=== PATIENT | male | born 1945 | race Caucasian/White ===

== ENCOUNTER 2018-02-25 20:32 | Inpatient (IN) | payer MEDICARE, BC ==
[~2018-02-25] VITALS: Ht 175.3 cm; Wt 86.0 kg
[2018-02-25] MEDS ORDERED: PREDNISONE5 MG PO (20:47)
[2018-02-25] MEDS ORDERED: BACTRIM DS1 TAB PO (20:47)
[2018-02-25] MEDS ORDERED: BAYER CHEWABLE81 MG PO (20:48)
--- NOTE | 2018-02-25 20:52 | NUR ---
PATIENT TAKING AUSTEDO 9MG BID NOT ON LIST.
--- NOTE | 2018-02-25 21:08 | NUR ---
PATIENT WITH A FEVER AND NOTICED A RED RASH TO ABD AND CHEST WHEN PLACED IN ROOM. DR GUALLPA ADVISED.
--- NOTE | 2018-02-25 21:19 | NUR ---
REDNESS NOTED TO FACE/CHEST/BACK. DENIES ANY INTCHING. BS CLEAR. NO STIDOR. PT ALERT AND ORIETNED. SET UP MECHANIC HEADING MACHINES AT BEDSIDE
[2018-02-25 22:11] LABS: BASOPHILS 0 % (0-2); EOSINOPHILS 0.1 % (0-7); HEMATOCRIT 46.1 % (42.0-54.0); HEMOGLOBIN 15.8 g/dL (13.5-17.5); IMMATURE GRANULOCYTES 0.6 % (0-5); LYMPHOCYTES 2.6 % (15-50); MCH 30.6 pg (26.0-34.0); MCHC 34.3 g/dL (31.0-37.0); MCV 89.3 fL (80.0-100.0); MEAN PLATELET VOLUME 12.1 fL (7.4-10.4); MONOCYTES 4.7 % (2-11); PLATELET COUNT 159 10x3/uL (130-400); RBC 5.16 10x6/uL (4.20-6.10); RDW 14.2 % (11.5-14.5); WBC 16.1 10x3/uL (4.8-10.8)
--- NOTE | 2018-02-25 22:26 | NUR ---
PREDATORY HUNTER AT BEDSIDE AT THIS TIME
[2018-02-25 22:27] LABS: ALBUMIN 3.3 g/dL (3.4-5.0); ANION GAP 16.8 mmol/L (8-16); BILIRUBIN - TOTAL 0.55 mg/dL (0.2-1.3); CALCIUM 8.5 mg/dL (8.5-10.1); CARBON DIOXIDE 24.5 mmol/L (21.0-32.0); CREATININE - SERUM 1.7 mg/dL (0.6-1.3); POTASSIUM - SERUM 4.3 mmol/L (3.5-5.1); PROTEIN - SERUM 7.2 g/dL (6.4-8.2)
[2018-02-25] MEDS ORDERED: CLEOCIN HCL300 MG PO (22:44)
[2018-02-25] MEDS ORDERED: NORCO 7.5/325 T1 TA1 PO (22:44)
[2018-02-25 23:26] VITALS: BP 119/58
[2018-02-26] VITALS (9 sets, daily range): BP systolic 92–123; BP diastolic 54–66; Ht 175.3 cm; Wt 86.0 kg
--- NOTE | 2018-02-26 01:10 | NUR ---
REPORT CALLED AT THIS TIME. PT AND FAMILY ADVISED ON ADMIT
--- NOTE | 2018-02-26 01:15 | NUR ---
IV ABX AND IV FLUIDS STOPPED AT THIS TIME
[2018-02-26] MEDS ORDERED: AUSTEDO PO (01:28)
--- NOTE | 2018-02-26 02:02 | NUR ---
PT TO FLOOR VIA WHEELCHAIR. AND DAUGHTER AT BEDSIDE. ALERT AND ORIENTED X 4. UP AB JERI. DRSG TO L SIDE. TREMORS NOTED. L HAND SL. R HAND WITH NS BUT RUNNING VANCOMYCIN AT THIS TIME. 2L 02 PER NC. PT DENIES PAIN AT THIS TIME. NO FURTHER COMPLAINTS AT THIS TIME. BED LOWERED AND LOCEKD. CL IN REACH. WILL CONTINUE TO MONITOR.
--- NOTE | 2018-02-26 06:27 | NUR ---
DR. GUALLPA CALLED TO CHECK ON PT. INFORMED PHYSICIAN THAT PT BP WAS STILL LOW PT WAS CURRENTLY RESTING IN BED SLEEPING. ALSO ASKED ABOUT PT TEMP. INFOMRED THAT PT TEMPS HAD BEEN WITHIN NORMAL RANGE. ALSO INFOMRED HIM THAT PT SKIN REDNESS HAD SUBSIDED. NO FURTHER CONCERNS AT THIS TIME.
--- NOTE | 2018-02-26 07:30 | NUR ---
RECIEVED A/A/OX4. DENIES ANY PAIN AT PRESENT TIME AND NO REQUESTS VOICED. DRESSING TO UPPERLEFT CHEST WITH SMALL AMT DRIED BLOOD ON BANDAGE. REDDENED AREA AROUND EDGE OF BANDAGE WHICH PT STATES IS NOT NEW, HAS BEEN THERE SINCE INFECTION STARTED. IV PATENT TO RIGHT HAND WITHOUT ANY S/S OF INFILTRATION.
--- NOTE | 2018-02-26 09:27 | NUR ---
RESP UL ON . VISITORS AT BS. CALL LIGHT IN REACH.
--- NOTE | 2018-02-26 10:41 | NUR ---
RATIONALE FOR SCD'S EXPLAINED; REFUSED SCD'S PER TORIE/SALAS
[2018-02-27 00:33] VITALS: BP 117/51
--- NOTE | 2018-02-27 01:40 | NUR ---
RESUMING PATIENT CARE. PATIENT IS ALERT AND ORIENTED. RESPIRATIONS ARE EVEN AND UNLABORED. NO S/S OF DISTRESS. NO C/O PAIN. PATIENT VERBALIZED NO NEEDS AT THIS TIME. PT BOARD UPDATED. CALL LIGHT WITHIN REACH. WILL CPOC.
--- NOTE | 2018-02-27 03:02 | NUR ---
PATIENT APPEARS TO BE SLEEPING. RESPIRATIONS ARE EVEN AND UNLABORED. NO S/S OF DISTRESS. CALL LIGHT WITHIN REACH.
[2018-02-27 05:38] LABS: BASOPHILS 0.1 % (0-2); EOSINOPHILS 0.4 % (0-7); IMMATURE GRANULOCYTES 0.3 % (0-5); LYMPHOCYTES 7.3 % (15-50); MCH 29.9 pg (26.0-34.0); MCV 90.5 fL (80.0-100.0); MEAN PLATELET VOLUME 11.9 fL (7.4-10.4); NEUTROPHILS 84.9 % (40-80); PLATELET COUNT 147 10x3/uL (130-400); RDW 14.5 % (11.5-14.5); WBC 15.5 10x3/uL (4.8-10.8)
[2018-02-27 05:54] LABS: ANION GAP 13.5 mmol/L (8-16); CARBON DIOXIDE 20.7 mmol/L (21.0-32.0); CREATININE - SERUM 1.1 mg/dL (0.6-1.3); POTASSIUM - SERUM 4.2 mmol/L (3.5-5.1)
[2018-02-27 05:57] LABS: RBC 4.02 10x6/uL (4.20-6.10)
[2018-02-27 05:58] LABS: HEMATOCRIT 36.4 % (42.0-54.0)
[2018-02-27 06:24] VITALS: BP 124/75
[2018-02-27 07:54] VITALS: BP 147/70
--- NOTE | 2018-02-27 08:48 | NUR ---
RESP UL ON . IV PATENT. CALL LIGHT IN REACH. AT BS. WILL MONITOR NEEDS.
[2018-02-27 11:40] VITALS: BP 106/68
[2018-02-27] MEDS ORDERED: CLEOCIN HCL150 MG PO (13:58)
[2018-02-27 15:07] VITALS: BP 133/68
--- NOTE | 2018-02-27 16:42 | MORECARE ---
CASE MANAGEMENT DISCHARGE SUMMARY PATIENT: THANG ORTEGA UNIT: [id number] ADM DATE: 02/26/18 AGE: 72 : 47 SEX: M ROOM/BED: D.2139 AUTHOR: ELVI KOLB PHYSICIAN: REFERRING PHYSICIAN: SANJIV PURCELL MD DATE OF SERVICE: 02/27/18 Discharge Plan Patient Name: THANG ORTEGA Facility: [facility]:[place] : 1945 Planned Disposition: Home Anticipated Discharge Date: 02/27/18 Discharge Date: Expected LOS: 1 Initial Reviewer: [email or web address] Initial Review Date: 02/27/2018 Generated: 02/27/18 5:42 pm Comments DCP- Discharge Planning Updated by [email or web address]: Phu Castro on 02/27/18 3:[address] Patient Name: THANG ORTEGA Admission Status: ER Accout number: [id number] Admission Date: 02-26-2018 : 1945 Admission Diagnosis: Attending: SANJIV PURCELL Current LOS: 1 Anticipated DC Date: 02-27-2018 Planned Disposition: Home Primary Insurance: MEDICARE A & B Discharge Planning Comments: CM MET WITH PT IN ROOM TO DISCUSS DISCHARGE PLANNING AND NEEDS. PT REPORTS LIVING AT HOME INDEPENDENTLY WITH HIS SPOUSE. PT HAS NO MEDICAL EQUIPMENT AND NO OUTSIDE SERVICES ASSISTING IN THE HOME. CM DISCUSSED AVAILABILITY OF HOME HEALTH, REHAB SERVICES AND MEDICAL EQUIPMENT. PT DENIES DISCHARGE NEEDS, REPORTS HIS OR DAUGHTER WILL PICK HIM UP FOR DISCHARGE HOME. RECORD FILING CLERK NURSE NOTIFIED. Director Of Collections And Archives: Phu Castro DCPIA - Discharge Planning Initial Assessment Updated by [email or web address]: Phu Castro on 02/27/18 4:27 pm * Is the patient Alert and Oriented? Yes * How many steps to enter\exit or inside your home? 1-O / 1-I * PCP DR. PURCELL * Pharmacy [facility] [address] * Preadmission Environment Home with Family * ADLs Independent * Equipment None * Other Equipment NO MEDICAL EQUIPMENT PROVIDER PREFERENCE * List name and contact numbers for known caregivers / representatives who currently or will assist patient after discharge: SPIKE ORTEGA, SPOUSE, * Verbal permission to speak to the caregivers and representatives has been obtained from the patient. N/A * Community resources currently utilized None * Please name any agencies selected above. NONE * Additional services required to return to the preadmission environment? No * Can the patient safely return to the preadmission environment? Yes * Has this patient been hospitalized within the prior 30 days at any hospital? No Patient Name: THANG ORTEGA Page [id number] at 1642 All edits/amendments must be made on the electronic document DICTATION DATE: 02/27/181641 DOMESTIC VIOLENCE COUNSELOR: ABRAHAM 02/27/181641 RPT#: [id number] DC DATE: STATUS: ADM IN [facility] [address] [place] [address] END OF REPORT
--- NOTE | 2018-02-27 17:38 | NUR ---
PATIENT DISCHARGED VIA W/C VIA PRIVATE VEHICLE. IV D/C'D PRIOR TO D/C. PATIENT VERBALIZED UNDERSTANDING OF D/C INSTRUCTIONS AND DID ALSO.
== END 2018-02-27 17:40 | disposition home or self-care (01) | DRG 916 ==
LOC: D.ER 20:32 → D.M2 02-26 00:11 → D.EDHOLD 02-26 00:11 → D.ICU 02-26 00:24 → D.EDHOLD 02-26 00:57 → D.M2 02-26 01:01
PROVIDERS: Emergency Medicine; ADMIT Family Medicine
PROC: 0H95XZZ Drainage of Chest Skin, External Approach (ICD-10-PCS; principal; 2018-02-25)
DX: T80.69XA Other serum reaction due to other serum, initial encounter (principal); L02.213 Cutaneous abscess of chest wall; R11.10 Vomiting, unspecified; M32.9 Systemic lupus erythematosus, unspecified; K21.9 Gastro-esophageal reflux disease without esophagitis; Y84.8 Other medical procedures as the cause of abnormal reaction of the patient, or of later complication, without mention of misadventure at the time of the procedure; I95.9 Hypotension, unspecified; L27.0 Generalized skin eruption due to drugs and medicaments taken internally; T50.Z95A Adverse effect of other vaccines and biological substances, initial encounter; Z87.891 Personal history of nicotine dependence